=== PATIENT | male | born 1995 | race Asian ===

== ENCOUNTER 2017-06-04 00:35 | Emergency (ER) | payer OTHER ==
--- NOTE | 2017-06-04 02:32 | EDPHY ---
H & P Stated Complaint: exposure to chipmunk, no visible injury, concern for disease Time Seen by Provider: 06/04/17 01:46 HPI/ROS: HPI The patient presents with concern about interaction with a chipmunk or Atkinson mantle ground squirrel earlier today when he was at [facility]. He says he was seated when he saw the animal approached him. The animal was very playful, climbing on his leg his hand and his head. He had some food in his pocket. He thinks the animal may have scratched his left hand and his left face. He is concerned about exposure to rabies or possibly the plate. REVIEW OF SYSTEMS Constitutional: No fever, no chills. Eyes: No discharge. ENT: No sore throat. Cardiovascular: No chest pain, no palpitations. Respiratory: No cough, no shortness of breath. Gastrointestinal: No abdominal pain, no vomiting. Genitourinary: No hematuria. Musculoskeletal: No back pain. Skin: No rashes. Neurological: No headache. PMHx: Healthy Soc Hx: [place] PHYSICAL General Appearance: Alert, no distress Eyes: Pupils equal and round no pallor or injection ENT, Mouth: Mucous membranes moist Respiratory: Breathing comfortably Neurological: A&O, moves all extremities Skin: Warm and dry, no rashes Musculoskeletal: Neck is supple non tender Extremities: symmetrical, full range of motion Psychiatric: Patient is oriented X 3, there is no agitation Source: Patient Exam Limitations: No limitations - Personal History Current Tetanus/Diphtheria Vaccine: No - Medical/Surgical History Hx Asthma: No Hx Chronic Respiratory Disease: No Hx Diabetes: No Hx Cardiac Disease: No Hx Renal Disease: No Hx Cirrhosis: No Hx Alcoholism: No Hx HIV/AIDS: No Hx Splenectomy or Spleen Trauma: No Other PMH: healthy. nose surgery as a child - Social History Smoking Status: Never smoked Constitutional: Initial Vital Signs Temperature (C) 36.5 C 06/04/17 00:43 Heart Rate 60 06/04/17 00:43 Respiratory Rate 15 06/04/17 00:43 Blood Pressure 122/91 H 06/04/17 00:43 O2 Sat (%) 96 06/04/17 00:43 O2 Delivery Mode Room Air Allergies/Adverse Reactions: shellfish derived Allergy (Verified 06/04/17 00:43) Tetanus Vaccines and Toxoid Allergy (Verified 06/04/17 00:43) Home Medications: Medication Instructions Recorded NK [No Known Home Meds] 06/04/17 Medical Decision Making Differential Diagnosis: This is a 21-year-old male who is healthy who presents after playing with an animal at [facility] earlier today, now with concern for her rabies. He shows me pictures of the animal which does appear to be a atkinson mantel ground squirrel. At the prior, these are known to be quite brazen and could have approached him looking for food. He does not have any abrasions or lacerations on his skin. According to the CDC web site, squirrels and chipmunks do not carry rabies. I think the risk is quite low. The patient was concerned, thus I consulted with Dr. Ever Calhoun of Infectious Disease and agreed that risk is incredibly low for transition of rabies from incident such as this. I explained this to the patient, I have answered all his questions. I have directed him to the [place] department of Public Health for further questions. I have given him information for contact to infectious disease for follow-up as needed. Departure - Departure Disposition: Home, Routine, Self-Care Clinical Impression: Other contact with squirrel, initial encounter Condition: Good Instructions: Rabies (ED) Additional Instructions: You should call the department of public health for [place] [phone]. You can also call Dr. Calhoun for a follow up appointment. Referrals: Ever Calhoun MD [Medical Doctor] - As per Instructions
[2017-06-04 02:47] VITALS: BP 120/82; PULSE 82; RESP 18; TEMP 98.1; O2SAT 95
== END 2017-06-04 02:45 | disposition home or self-care (01) ==
DX: Z20.3 Contact with and (suspected) exposure to rabies (principal)